=== PATIENT | female | born 1995 | race Caucasian/White ===

== ENCOUNTER 2022-07-04 00:18 | Inpatient (IN) | payer OTHER, BC ==
[~2022-07-04 00:18] MED LIST: Bupivacaine 0.25% 10 ML SDV ONE; Lidocaine 1.5% with EPINEPHrine 1:200,000 5 ML Amp ONE
[2022-07-04] MEDS ORDERED: Nalbuphine 10 MG/0.5 ML Syringe IVPUSH PRN (00:58)
[2022-07-04] MEDS ORDERED: Sodium Chloride 0.9% 10 ML Syringe FLUSH PRN (00:58)
[2022-07-04] MEDS ORDERED: Lactated Ringers 1,000 ML IV SCH (01:15)
[2022-07-04] MEDS ORDERED: Oxytocin/Lactated Ringers 10 UNIT/1,000 ML BAG IV SCH ×2 (01:15→15:36)
[2022-07-04] MEDS ORDERED: Ondansetron 4 MG/2 ML SDV IVPUSH PRN (01:51)
[2022-07-04] MEDS ORDERED: Ampicillin 2 GM in Sodium Chloride 0.9% 100 ML IV ONE (01:51)
[2022-07-04] MEDS ORDERED: Ampicillin 1 GM in Sodium Chloride 0.9% 100 ML IV SCH (02:00)
[2022-07-04] MEDS: Lactated Ringers 1,000 ML IV SCH ×3 (02:02→09:48)
[2022-07-04] MEDS ORDERED: ePHEDrine 50 MG/ML SDV IVPUSH PRN (04:10)
[2022-07-04] MEDS ORDERED: diphenhydrAMINE 50 MG/ML SDV IVPUSH PRN (04:10)
[2022-07-04] MEDS: fentaNYL 100 MCG/2 ML SDV EPIDUR PRN ×2 (04:17→10:39)
[2022-07-04] MEDS: Bupivacaine/fentaNYL/NS 100 ML Bag EPIDUR PRN ×2 (04:18→12:47)
[2022-07-04] MEDS: Ampicillin 1 GM in Sodium Chloride 0.9% 100 ML IV SCH ×2 (05:53→09:49)
[2022-07-04] MEDS ORDERED: Sodium Chloride 0.9% 10 ML Syringe FLUSH SCH (09:00)
[2022-07-04] MEDS ORDERED: Benzocaine/Menthol 20%-0.5% Spray 78 GM Cannister TOP PRN (15:36)
[2022-07-04] MEDS ORDERED: Magnesium Hydroxide 400 MG/5 ML Susp 30 ML Cup PO PRN (15:36)
[2022-07-04] MEDS ORDERED: Witch Hazel Medicated Pads 40/Jar TOP PRN (15:36)
[2022-07-04] MEDS ORDERED: Hydrocortisone Acetate 25 MG Supp RECTAL PRN (15:36)
[2022-07-04] MEDS: Ibuprofen 600 MG Tab PO PRN ×2 (16:57→22:59)
[2022-07-05] MEDS: Levothyroxine 88 MCG Tab PO SCH (06:05)
[2022-07-05] MEDS: Ibuprofen 600 MG Tab PO PRN ×3 (06:05→20:07)
[2022-07-05] MEDS: Docusate Sodium 100 MG Cap PO PRN ×2 (06:05→20:12)
[2022-07-05] MEDS ORDERED: Prenatal Multivitamin with Calcium/Folic Acid/Iron Tab PO SCH (09:00)
[2022-07-05] MEDS: Acetaminophen 325 MG Tab PO PRN (20:08)
[2022-07-06] MEDS: Ibuprofen 600 MG Tab PO PRN (03:39)
[2022-07-06] MEDS: Acetaminophen 325 MG Tab PO PRN (03:41)
[2022-07-06] MEDS: Levothyroxine 88 MCG Tab PO SCH (06:29)
== END 2022-07-06 10:50 | disposition home or self-care (01) | DRG 807 ==
LOC: JD.OBCHECK 00:18 → JD.OB 00:22 → JD.OBCHECK 03:28 → JD.OB 03:29 → OBSVTOIN 15:36 → JD.OB 15:58
PROVIDERS: ADMIT Obstetrics & Gynecology; ATTEND Obstetrics & Gynecology
PROC: 10E0XZZ Delivery of Products of Conception, External Approach (ICD-10-PCS; principal; 2022-07-04)
PROC: 00HU33Z Insertion of Infusion Device into Spinal Canal, Percutaneous Approach (ICD-10-PCS; principal; 2022-07-04)
PROC: 3E0R3BZ Introduction of Anesthetic Agent into Spinal Canal, Percutaneous Approach (ICD-10-PCS; principal; 2022-07-04)
PROC: 0HQ9XZZ Repair Perineum Skin, External Approach (ICD-10-PCS; principal; 2022-07-04)
DX: O42.02 Full-term premature rupture of membranes, onset of labor within 24 hours of rupture (principal); Z37.0 Single live birth; O70.0 First degree perineal laceration during delivery; O99.824 Streptococcus B carrier state complicating childbirth; O99.284 Endocrine, nutritional and metabolic diseases complicating childbirth; E28.2 Polycystic ovarian syndrome; E03.9 Hypothyroidism, unspecified; Z3A.37 37 weeks gestation of pregnancy; Z79.890 Hormone replacement therapy
CPT/HCPCS: 36415; 51702; 59025; 59409; 85025; 86592; 86850; 86900; 86901; A9270-GY; J0290; J2590; J3010; J3490; J7120

== ENCOUNTER 2024-02-27 07:10 | Inpatient (IN) | payer OTHER ==
[2024-02-27] MEDS ORDERED: Lidocaine 1% 50 ML MDV INJECT PRN (07:47)
[2024-02-27] MEDS ORDERED: Acetaminophen 325 MG Tab PO PRN (07:47)
[2024-02-27] MEDS ORDERED: Nalbuphine 10 MG/1 ML Vial IVPUSH PRN (07:47)
[2024-02-27] MEDS ORDERED: Calcium Carbonate 500 MG Tab.Chew PO PRN (07:47)
[2024-02-27] MEDS ORDERED: Oxytocin/0.9 % Sodium Chloride 30 UNIT/500 ML BAG IV SCH (08:00)
[2024-02-27] MEDS: Penicillin G Potassium 5 MILLUNITS in Sodium Chloride 0.9% 100 ML IV ONE (08:05)
[2024-02-27] MEDS: Lactated Ringers 1,000 ML IV SCH (08:05)
[2024-02-27 08:28] LABS: BASOPHILS PERCENT AUTO 0.3 % (0.0-1.0); EOSINOPHILS PERCENT AUTO 0.2 % (0.0-6.0); HEMOGLOBIN 12.9 gm/dl (12.0-16.0); IMMATURE GRAN ABSOLUTE AUTO 0.05 K/mm3 (0.00-0.05); IMMATURE GRAN PERCENT AUTO 0.5 % (0.0-0.4); LYMPHOCYTES ABSOLUTE AUTO 1.5 K/mm3 (1.0-4.8); MEAN CORPUSCULAR HEMOGLOBIN 32.6 pg (28.0-32.0); MEAN CORPUSCULAR HGB CONC 33.9 g/dl (32.0-36.0); MEAN PLATELET VOLUME 11.1 fl (9.4-12.3); MONOCYTES ABSOLUTE AUTO 0.3 K/mm3 (0.0-0.8); NEUTROPHILS ABSOLUTE AUTO 8.6 K/mm3 (1.8-7.7); PLATELET COUNT,PLT 224 K/mm3 (150-400); RED BLOOD CELL COUNT 3.96 M/mm3 (4.10-5.30)
[2024-02-27] MEDS ORDERED: diphenhydrAMINE 50 MG/ML SDV IVPUSH PRN (08:39)
[2024-02-27] MEDS ORDERED: ePHEDrine 50 MG/ML SDV IVPUSH PRN (08:39)
[2024-02-27] MEDS: Bupivacaine/fentaNYL/NS 100 ML Bag EPIDUR PRN (08:55)
[2024-02-27] MEDS: Ondansetron 4 MG/2 ML SDV IVPUSH PRN (09:28)
[2024-02-27] MEDS: Penicillin G Potassium 2.5 MILLUNITS in Sodium Chloride 0.9% 100 ML IV SCH (11:47)
[2024-02-27] MEDS: Oxytocin/0.9 % Sodium Chloride 30 UNIT/500 ML BAG IV SCH (16:19)
[2024-02-27] MEDS ORDERED: Docusate Sodium 100 MG Cap PO PRN (17:05)
[2024-02-27] MEDS: Ibuprofen 600 MG Tab PO SCH ×2 (17:37→20:10)
[2024-02-27] MEDS: Witch Hazel Medicated Pads 40/Jar TOP PRN (18:28)
[2024-02-27] MEDS: Benzocaine/Menthol 20%-0.5% Spray 78 GM Cannister TOP PRN (18:28)
== END 2024-02-28 17:35 | disposition home or self-care (01) | DRG 807 ==
LOC: JD.OBCHECK 07:10 → JD.OB 07:12 → JD.OBCHECK 07:46 → JD.OB 07:47
PROVIDERS: ADMIT Family Medicine; ATTEND Family Medicine
PROC: 10E0XZZ Delivery of Products of Conception, External Approach (ICD-10-PCS; principal; 2024-02-27)
PROC: 10907ZC Drainage of Amniotic Fluid, Therapeutic from Products of Conception, Via Natural or Artificial Opening (ICD-10-PCS; 2024-02-27)
PROC: 3E0R3BZ Introduction of Anesthetic Agent into Spinal Canal, Percutaneous Approach (ICD-10-PCS; 2024-02-27)
PROC: 00HU33Z Insertion of Infusion Device into Spinal Canal, Percutaneous Approach (ICD-10-PCS; 2024-02-27)
DX: O99.284 Endocrine, nutritional and metabolic diseases complicating childbirth (principal); Z37.0 Single live birth; E03.9 Hypothyroidism, unspecified; Z3A.39 39 weeks gestation of pregnancy; O99.824 Streptococcus B carrier state complicating childbirth; O77.0 Labor and delivery complicated by meconium in amniotic fluid
CPT/HCPCS: 36415; 51701; 59025; 59409; 85025; 86592; A9270-GY; C1758; J2405; J2540; J3490; J7120; J7999